=== PATIENT | female | born 1990 | race American Indian/Alaskan Native ===

== ENCOUNTER 2016-11-10 01:09 | Emergency (ER) | payer MEDICAID, OTHER ==
[2016-11-10] MEDS ORDERED: TORADOL IM ONE (03:47)
--- NOTE | 2016-11-10 03:59 | Emergency Department Report ---
ED ENT HPI - General Chief complaint: Sore Throat Stated complaint: THROAT PAIN/SWOLLEN Time Seen by Provider: 11/10/16 03:41 Source: patient Mode of arrival: Ambulatory Limitations: No Limitations - History of Present Illness Initial comments: 25-year-old -[place] female comes in for complaint of sore throat with left ear pain times about 10 hours. Patient reports she is having no trouble breathing no difficulty opening her mouth denies any trauma. She reports that her glands in her neck feels swollen. She denies fever chills nausea vomiting. She reports she had a last menses about 11/05/2015 she delivered a baby in July 2016 and she has an IUD Mirena placed. MD complaint: sore throat, ear pain - Related Data Previous Rx's Medication Instructions Recorded Last Taken Type Vit No.130/Iron/FA 1 each PO QDAY #30 tablet 12/21/15 Unknown Rx [ Tablet] Amoxicillin [Amoxicillin TAB] 875 mg PO BID #14 tablet 11/10/16 Unknown Rx Ibuprofen [Motrin 800 MG tab] 800 mg PO Q8HR PRN #30 tablet 11/10/16 Unknown Rx Allergies Allergy/AdvReac Type Severity Reaction Status Date / Time azithromycin Allergy Swelling Verified 03/16/15 17:34 [From Zithromax Z-Cristi] ED Dental HPI - General Chief complaint: Sore Throat Stated complaint: THROAT PAIN/SWOLLEN Time Seen by Provider: 11/10/16 03:41 Source: patient Mode of arrival: Ambulatory Limitations: No Limitations - Related Data Previous Rx's Medication Instructions Recorded Last Taken Type Vit No.130/Iron/FA 1 each PO QDAY #30 tablet 12/21/15 Unknown Rx [ Tablet] Amoxicillin [Amoxicillin TAB] 875 mg PO BID #14 tablet 11/10/16 Unknown Rx Ibuprofen [Motrin 800 MG tab] 800 mg PO Q8HR PRN #30 tablet 11/10/16 Unknown Rx Allergies Allergy/AdvReac Type Severity Reaction Status Date / Time azithromycin Allergy Swelling Verified 03/16/15 17:34 [From Zithromax Z-Cristi] ED Review of Systems ROS: Stated complaint: THROAT PAIN/SWOLLEN Other details as noted in HPI Constitutional: denies: chills, fever Eyes: as per HPI ENT: ear pain, throat pain Respiratory: denies: cough, shortness of breath, wheezing Cardiovascular: denies: chest pain, palpitations Endocrine: no symptoms reported Gastrointestinal: denies: abdominal pain, nausea, diarrhea Genitourinary: denies: urgency, dysuria, discharge Musculoskeletal: denies: back pain, joint swelling, arthralgia Skin: denies: rash, lesions Neurological: denies: headache, weakness, paresthesias Psychiatric: denies: anxiety, depression Hematological/Lymphatic: denies: easy bleeding, easy bruising ED Past Medical Hx - Past Medical History Previous Medical History?: Yes Hx Asthma: Yes - Surgical History Past Surgical History?: Yes Additional Surgical History: [place] teeth. episiotomy x 2 - Social History Smoking Status: Never Smoker Substance Use Type: None - Medications Home Medications: Home Medications Medication Instructions Recorded Confirmed Last Taken Type Vit No.130/Iron/FA 1 each PO QDAY #30 tablet 12/21/15 Unknown Rx [ Tablet] Amoxicillin [Amoxicillin TAB] 875 mg PO BID #14 tablet 11/10/16 Unknown Rx Ibuprofen [Motrin 800 MG tab] 800 mg PO Q8HR PRN #30 tablet 11/10/16 Unknown Rx ED Physical Exam - General Limitations: No Limitations General appearance: alert, in no apparent distress - Head Head exam: Present: atraumatic, normocephalic - Eye Eye exam: Present: normal appearance - ENT ENT exam: Present: mucous membranes moist, TM's normal bilaterally - Expanded ENT Exam Expanded Throat exam: Positive: tonsillar erythema, tonsillomegaly. Negative: tonsillar exudate - Neck Neck exam: Present: normal inspection, tenderness, lymphadenopathy - Respiratory Respiratory exam: Present: normal lung sounds bilaterally. Absent: respiratory distress - Cardiovascular Cardiovascular Exam: Present: regular rate, normal rhythm. Absent: systolic murmur, diastolic murmur, rubs, gallop - GI/Abdominal GI/Abdominal exam: Present: soft, normal bowel sounds - Extremities Exam Extremities exam: Present: normal inspection - Back Exam Back exam: Present: normal inspection - Neurological Exam Neurological exam: Present: alert, oriented X3 - Psychiatric Psychiatric exam: Present: normal affect, normal mood - Skin Skin exam: Present: warm, dry, intact, normal color. Absent: rash ED Course Vital Signs 11/10/16 01:26 Temperature 98.4 F Pulse Rate 68 Respiratory 18 Rate Blood Pressure 131/82 [Right] O2 Sat by Pulse 100 Oximetry ED Medical Decision Making - Medical Decision Making Patient has been evaluated by this provider fast track. The patient on give her something for pain. Patient requests a injection versus pills. Rapid strep was sent out as a preliminary rapid negative. This is most likely due to a virus. We will discharge patient on ibuprofen and have her follow-up with her family care provider. Discussed with mother since she is breast-feeding that I'm not inclined to expose her baby to antibiotics so soon since the child is only 3 months ago. I did discuss with patient she calls me on Monday and hurt test is positive for strep that I will direct her to fill the prescription for the amoxicillin 875 mg twice a day. Patient verbalized understanding Critical care attestation.: If time is entered above; I have spent that time in minutes in the direct care of this critically ill patient, excluding procedure time. ED Disposition Clinical Impression: Sorethroat Disposition: DISCHARGED TO HOME OR SELFCARE Is pt being admited?: No Does the pt Need Aspirin: No Condition: Stable Instructions: Pharyngitis (ED) Additional Instructions: Please give me a call back at the emergency room on Monday to obtain the results suggest strep. At that time I wasn't directly to fill your medication for strep throat. He can take ibuprofen 1 tablet by mouth 3 times a day as needed for throat pain. Return to the emergency room if he spiked a fever nausea vomiting or the like a getting worse. Prescriptions: Amoxicillin [Amoxicillin TAB] 875 mg PO BID #14 tablet Ibuprofen [Motrin 800 MG tab] 800 mg PO Q8HR PRN #30 tablet PRN Reason: Pain Referrals: PRIMARY CARE, [Primary Care Provider] - 3-5 Days Forms: Work/School Release Form(ED)
[2016-11-10 05:03] VITALS: BP 122/68
== END 2016-11-10 05:18 | disposition home or self-care (01) ==
LOC: ED 01:09
DX: J02.9 Acute pharyngitis, unspecified (principal); J45.909 Unspecified asthma, uncomplicated; Z88.1 Allergy status to other antibiotic agents
CPT/HCPCS: 87116; 87430; 96372; 99282; J1885

== ENCOUNTER 2017-03-04 12:04 | Emergency (ER) | payer MEDICAID | END 2017-03-04 12:05 | disposition left against medical advice (07) | LOC: ED 12:04 | DX: H57.12 Ocular pain, left eye (principal); Z53.21 Procedure and treatment not carried out due to patient leaving prior to being seen by health care provider ==